=== PATIENT | female | born 1970 | race Two or more races ===

== ENCOUNTER 2023-06-16 23:44 | Emergency (ER) | payer OTHER ==
[~2023-06-16] VITALS: Ht 157.5 cm; Wt 87.0 kg
[2023-06-17 01:16] LABS: Basophils # (auto) 0.1 10 ^3/uL (0-0.2); Eosinophils # (auto) 0.5 10 ^3/uL (0-0.8); Lymphocytes # (auto) 1.6 10 ^3/uL (0.4-5.4); Neutrophils # (auto) 9.2 10 ^3/uL (1.6-8.6); Nucleated Red Blood Cells % 0.1 %; Red Cell Distribution Width 19.4 % (11.8-14.3)
[2023-06-17 01:17] LABS: Basophils % (auto) 0.9 % (0.0-2.0); Eosinophils % (auto) 3.9 % (0.0-7.0); Hematocrit 31.8 % (36.0-46.0); Hemoglobin 10.4 g/dL (12.2-16.2); Mean Corpuscular Hemoglobin 23.4 pg (28.0-32.0); Mean Corpuscular Hgb Conc. 32.8 g/dL (32.0-36.0); Mean Corpuscular Volume 71.5 fL (80.0-100.0); Monocytes # (auto) 0.9 10 ^3/uL (0-1.3); Monocytes % (auto) 7.2 % (0.0-12.0); Red Blood Cells 4.44 10^6/uL (4.0-5.20); White Blood Cell 12.3 10^3/uL (4.4-10.8)
[2023-06-17 01:33] LABS: Alanine Aminotransferase 34 U/L (7-40); Albumin 3.7 g/dL (3.2-4.8); Alkaline Phosphatase 111 U/L (46-116); Anion Gap 8 (5-15); Aspartate Aminotransferase 36 U/L (13-40); BUN/Creatinine Ratio 18.8 (10.0-20.0); Bilirubin, Total 0.3 mg/dL (0.2-1.0); Blood Urea Nitrogen 16 mg/dL (9-23); Calcium 8.5 mg/dL (8.7-10.4); Carbon Dioxide 26 mmol/L (20-30); Chloride 105 mmol/L (98-107); Glucose 244 mg/dL (74-106); Potassium 3.8 mmol/L (3.5-5.1); Sodium 139 mmol/L (136-145); Total Protein 6.7 g/dL (5.7-8.2)
[2023-06-17] MEDS ORDERED: MEDR5TAB28 PO (02:09)
[2023-06-17] MEDS ORDERED: CEPH500C PO (02:09)
[2023-06-17 02:50] VITALS: BP 148/77; PULSE 101; RESP 16; TEMP 98.6; O2SAT 97
[2023-06-20] MEDS ORDERED: FER325T PO (04:58)
== END 2023-06-17 02:58 | disposition home or self-care (01) ==
LOC: EDBD 23:44 → ER 23:44
DX: N93.9 Abnormal uterine and vaginal bleeding, unspecified (principal)
CPT/HCPCS: 36415; 76856; 80053; 84702; 85025

== ENCOUNTER 2023-07-04 15:14 | Emergency (ER) | payer OTHER ==
[~2023-07-04] VITALS: Ht 157.5 cm; Wt 144.3 kg
[~2023-07-04 15:14] MED LIST: CEPH500C PO; FER325T PO; MEDR5TAB28 PO
[2023-07-04 15:47] VITALS: BP 156/84; PULSE 120; RESP 16; TEMP 98.2; O2SAT 98
[2023-07-04] MEDS ORDERED: MEDR5TAB28 PO (15:57)
== END 2023-07-04 16:09 | disposition home or self-care (01) ==
LOC: ER 15:14
DX: N93.9 Abnormal uterine and vaginal bleeding, unspecified (principal); Z76.0 Encounter for issue of repeat prescription; Z79.899 Other long term (current) drug therapy

== ENCOUNTER 2025-01-07 19:19 | Inpatient (IN) | payer MEDICAID, OTHER ==
[~2025-01-07] VITALS: Ht 157.5 cm; Wt 127.5 kg
--- NOTE | 2025-01-07 19:43 | ED.PDOC ---
HPI Comments 54-year-old female came to ER for chest pains. Patient has history of hypertension, uterine cancer, status post hysterectomy, on chemotherapy every 3 weeks. Has been complaining of left-sided chest pain since yesterday, intermittent, nonradiating, associated with dizziness and palpitations. Upon arrival at the emergency room, heart rate of 140s, blood pressure 160/90 mm Hg, saturating 99% on room air Chief Complaint: Chest Pain Time Seen by MD: 19:42 Reviewed Notes: Nurses Notes Allergies: Coded Allergies: NO KNOWN ALLERGIES (Unverified , 06/17/23) Home Meds Active Scripts Medroxyprogesterone Acetate (PROVERA) 5 Mg Tab, 1 TAB PO DAILY, #30 TAB Prov:MALIK SANTANA PA 07/04/23 Ferrous Sulfate (FERROUS SULFATE) 325 Mg Tb, 1 TAB PO DAILY for 30 Days, #30 TAB 3 Refills Prov:SAIRA CHAMBERSA Q GROCERY WORKER 06/20/23 Cephalexin Monohydrate (Cephalexin) 500 Mg Cap, 1 CAP PO QID for 10 Days, #40 CAP Prov:SAIRA CHAMBERSA Q GROCERY WORKER 06/17/23 Medroxyprogesterone Acetate (PROVERA) 5 Mg Tab, 2 TAB PO DAILY for 5 Days, #10 TAB Prov:CHAMBERSNORALDA Q GROCERY WORKER 06/17/23 Information Source: Patient Mode of Arrival: Ambulatory Severity: Moderate Timing: Hours Duration: Intermittent Prehospital treatment: None Location: Chest (L) Radiation: No Radiation Quality: Aching Onset: At Rest Cardiac Risk Factors: HTN PE Risk Factors: Other (Chemotherapy) Associated Signs and Symptoms: Palpitations Past Medical History PAST MEDICAL HISTORY: Cancer, HTN, Denies Past Medical History (Other): Uterine cancer Surgical History: , Hysterectomy Surgical History (Other): Chemotherapy INFECTIOUS WASTE TECHNICIAN History: No Pertinent INFECTIOUS WASTE TECHNICIAN History Social History Smoker: Non-Smoker Alcohol: Denies ETOH Use Drugs: Denies Drug Use Lives In: Home Constitutional: denies: chills, diaphoresis, fatigue, fever, malaise, sweats, weakness, others EENTM: denies: blurred vision, double vision, ear bleeding, ear discharge, ear drainage, ear pain, ear ringing, eye pain, eye redness, hearing loss, mouth pain, mouth swelling, nasal discharge, nose bleeding, nose congestion, nose pain, photophobia, tearing, throat pain, throat swelling, voice changes, others Respiratory: denies: cough, hemoptysis, orthopnea, SOB at rest, shortness of breath, SOB with excertion, stridor, wheezing, others Cardiovascular: reports: chest pain, dizzy spells, edema, palpitations; denies: diaphoresis, Dyspnea on exertion, irregular heart beat, left arm pain, lightheadedness, PND, syncope, others Gastrointestinal: denies: abdomen distended, abdominal pain, blood streaked bowels, constipated, diarrhea, dysphagia, difficulty swallowing, hematemesis, melena, nausea, poor appetite, poor fluid intake, rectal bleeding, rectal pain, vomiting, others Genitourinary: denies: abnormal vagina bleeding, burning, dyspareunia, dysuria, flank pain, frequency, hematuria, incontinence, pain, , vagina discharge, urgency, others Neurological: denies: dizziness, fainting, headache, left sided numbness, left sided weakness, numbness, paresthesia, pre-existing deficit, right sided numbness, right sided weakness, seizure, speech problems, tingling, tremors, weakness, others Musculoskeletal: denies: back pain, gout, joint pain, joint swelling, muscle pain, muscle stiffness, neck pain, others Integumetry: denies: bruises, change in color, change in hair/nails, dryness, laceration, lesions, lumps, rash, wounds, others Allergic/Immunocompromised: denies: Difficulty Healing, Frequent Infections, Hives, Itching, others Hematologic/Lymphatic: denies: anemia, blood clots, easy bleeding, easy bruising, swollen glands, others Endocrine: denies: excessive hunger, excessive sweating, excessive thirst, excessive urination, flushing, intolerance to cold, intolerance to heat, unexplained weight gain, unexplained weight loss, others Psychiatric: denies: anxiety, bipolar disorder, depression, hopeless, panic disorder, schizophrenia, sleepless, suicidal, others Physical Exam General Appearance: No Apparent Distress, Normal HEENT: Normal ENT Inspection, Pharynx Normal, TMs Normal Neck: Full Range of Motion, Non-Tender, Normal, Normal Inspection Respiratory: Chest Non-Tender, Lungs Clear, No Accessory Muscle Use, No Respiratory Distress, Normal Breath Sounds Cardiovascular: No Edema, No JVD, No Murmur, No Gallop, Normal Peripheral Pulses, Tachycardia Breast Exam: Deferred Gastrointestinal: No Organomegaly, Non Tender, No Pulsatile Mass, Normal Bowel Sounds, Soft Genitalia: Deferred Pelvic: Deferred Rectal: Deferred Extremities: No calf tenderness, Normal capillary refill, Normal inspection, Normal range of motion, Non-tender, No pedal edema Musculoskeletal : Apperance: Normal Neurologic: Alert, machine paint mixer II-XII nml as Tested, No Motor Deficits, Normal Affect, Normal Mood, No Sensory Deficits Cerebellar Function: Normal Reflexes: Normal Skin: Dry, Normal Color, Warm Lymphatic: No Adenopathy EKG EKG : Pulse Rate (adult): 140 Cardiac Rhythm: ST Hypertrophy: LAE, LVH Was a procedure done? Was a procedure done?: No CP Differential Dx Differential Diagnosis: Angina, Anxiety / Panic Attack, Heart Failure, Hyperventilation, Pulmonary Embolus, Sinus Tachycardia Differential Diagnosis: Angina, Chest Wall Pain, Costochondritis, Esophageal reflux/spasm, Gastritis, Myocardial Infarction X-Ray, Labs, Meds, VS Vital Signs Date Time Temp Pulse Resp B/P (MAP) Pulse Ox O2 Delivery O2 Flow Rate FiO2 01/07/25 22:45 105 134/78 01/07/25 22:00 109 19 134/78 (96) 99 01/07/25 20:10 117 10 99 Room Air* 0 21 01/07/25 20:10 98.6 117 20 127/70 (89) 99 98.6 01/07/25 20:00 119 01/07/25 19:43 140 01/07/25 19:22 98.2 145 18 160/90 (113) 99 98.2 Lab Test 01/07/25 23:11 01/07/25 20:44 01/07/25 19:40 Range/Units Troponin I High Sensitivity Pending 80 *H 60 *H </=34 ng/L White Blood Count 4.4 4.4-10.8 10^3/uL Red Blood Count 4.71 4.0-5.20 10^6/uL Hemoglobin 12.1 L 12.2-16.2 g/dL Hematocrit 35.7 L 36.0-46.0 % Mean Corpuscular Volume 75.7 L 80.0-100.0 fL Mean Corpuscular Hemoglobin 25.7 L 28.0-32.0 pg Mean Corpuscular Hemoglobin Concent 34.0 32.0-36.0 g/dL Red Cell Distribution Width 21.4 H 11.8-14.3 % Platelet Count 119 L 140-450 10^3/uL Mean Platelet Volume 8.1 6.9-10.8 fL Neutrophils (%) (Auto) 62.8 37.0-80.0 % Lymphocytes (%) (Auto) 25.0 10.0-50.0 % Monocytes (%) (Auto) 9.4 0.0-12.0 % Eosinophils (%) (Auto) 2.1 0.0-7.0 % Basophils (%) (Auto) 0.7 0.0-2.0 % Neutrophils # (Auto) 2.8 1.6-8.6 10 ^3/uL Lymphocytes # (Auto) 1.1 0.4-5.4 10 ^3/uL Monocytes # (Auto) 0.4 0-1.3 10 ^3/uL Eosinophils # (Auto) 0.1 0-0.8 10 ^3/uL Basophils # (Auto) 0 0-0.2 10 ^3/uL Nucleated Red Blood Cells 0.3 % Sodium Level 143 136-145 mmol/L Potassium Level 4.1 3.5-5.1 mmol/L Chloride Level 110 H 98-107 mmol/L Carbon Dioxide Level 23 20-31 mmol/L Anion Gap 10 5-15 Blood Urea Nitrogen 14 9-23 mg/dL Creatinine 0.71 0.550-1.02 mg/dL Glomerular Filtration Rate Calc 100 >90 mL/min BUN/Creatinine Ratio 19.7 10.0-20.0 Serum Glucose 140 H 74-106 mg/dL Calcium Level 9.8 8.7-10.4 mg/dL Current Medications Medications (Trade) Dose Ordered Sig/Raghu Route Start Time Stop Time Status Last Admin Metoprolol Succinate (Toprol Xl) 25 mg ONCE ONCE PO 01/07/25 22:45 01/07/25 22:46 DC 01/07/25 22:45 CHEST RADIOGRAPH Indication: chest pain Technique: Single frontal view of the chest was obtained COMPARISON: None FINDINGS: Lines and Tubes: Right IJ port-a-cath noted with its tip projecting over SVC. Lungs: Clear Pleura: No effusion. No pneumothorax. Cardiomediastinal contours: Unremarkable IMPRESSION: No abnormality demonstrated. Time of 1ST Reevaluation: 19:39 Reevaluation 1ST: Unchanged Patient Education/Counseling: Diagnosis, Treatment Family Education/Counseling: No Family Present Departure 1 Departure Time of Disposition: 23:33 (Patient presented with chest pain that was concerning for possible STEMI, ACS, PE, Pneumonia, Muscle Strain, COPD, Dissect ion. Data: 1. I ordered and reviewed the result of at least 3 labs including a CBC, BMP, and Troponin. 2. I independently interpreted the following tests: EKG which shows sinus tachycardia and Chest X-ray which shows benign chest.Risk:This patient has a high risk of morbidity due to further diagnostic testing or treatment and may suffer from an acute cardiac or respiratory disorder. Workup reveals concern for ACS and patient should be admitted for further workup and possible expert consultation. ) Impression: Primary Impression: Acute chest pain Additional Impressions: Shortness of breath Uterine cancer Qualified Codes: C55 - Malignant neoplasm of uterus, part unspecified Disposition: ADMITTED INPATIENT Admit to: Tele Condition: Guarded Critical Care Note Critical Care Time?: Yes (35 min-critical care time only) Critical care comment: Chest pains Authorized and Performed by: Kelly Loja MD Total critical care time: Approximately 42 minutes Due to a high probability of clinically significant, life threatening deterioration, the patient required my highest level of preparedness to intervene emergently and I personally spent this critical care time directly and personally managing the patient. This critical care time included obtaining a history; examining the patient; pulse oximetry; ordering and review of studies; arranging urgent treatment with development of a management plan; evaluation of patient's response to treatment; frequent reassessment; and, discussions with other providers. This critical care time was performed to assess and manage the high probability of imminent, life-threatening deterioration that could result in multi-organ failure. It was exclusive of separately billable procedures and treating other patients and teaching time. Please see my other sections and the rest of the note for further information on patient assessment and treatment. Stability Stability form required: No Heart Score Heart Score: Heart Score Response (Comments) Value History Moderate Suspicious 1 EKG Repolarization Disturb 1 Age 45-64 1 Risk Factors >3 or Hx ASHD 2 Troponin 1-2 x's Normal limit 1 Total 6 I personally scribed for KELLY LOJA MD ([email or web address]) on 01/07/25 at 19:43. Electronically submitted by Josiah Castro ([facility]). I personally scribed for KELLY LOJA MD ([facility]) on 01/07/25 at 21:11. Ml ctronically submitted by Josiah Castro ([facility] I personally scribed for KELLY LOJA MD ([facility]) on 01/07/25 at 21:17. Electronically submitted by Josiah Castro ([facility] KELLY LOJA MD January 07, 2025 19:43
[2025-01-07 19:57] LABS: Basophils # (auto) 0 10 ^3/uL (0-0.2); Basophils % (auto) 0.7 % (0.0-2.0); Eosinophils # (auto) 0.1 10 ^3/uL (0-0.8); Eosinophils % (auto) 2.1 % (0.0-7.0); Hematocrit 35.7 % (36.0-46.0); Hemoglobin 12.1 g/dL (12.2-16.2); Lymphocytes # (auto) 1.1 10 ^3/uL (0.4-5.4); Mean Corpuscular Hemoglobin 25.7 pg (28.0-32.0); Mean Corpuscular Volume 75.7 fL (80.0-100.0); Monocytes # (auto) 0.4 10 ^3/uL (0-1.3); Monocytes % (auto) 9.4 % (0.0-12.0); Neutrophils # (auto) 2.8 10 ^3/uL (1.6-8.6); Neutrophils % (auto) 62.8 % (37.0-80.0); Nucleated Red Blood Cells % 0.3 %; Platelet Count (auto) 119 10^3/uL (140-450); Red Blood Cells 4.71 10^6/uL (4.0-5.20); White Blood Cell 4.4 10^3/uL (4.4-10.8)
[2025-01-07 19:58] LABS: Red Cell Distribution Width 21.4 % (11.8-14.3)
[2025-01-07 20:07] LABS: Potassium 4.1 mmol/L (3.5-5.1); Sodium 143 mmol/L (136-145)
[2025-01-07 20:08] LABS: Anion Gap 10 (5-15); Calcium 9.8 mg/dL (8.7-10.4); Carbon Dioxide 23 mmol/L (20-31)
[2025-01-07 20:10] VITALS: PULSE 117; RESP 10; O2SAT 99
[2025-01-07 20:13] LABS: BUN/Creatinine Ratio 19.7 (10.0-20.0); Blood Urea Nitrogen 14 mg/dL (9-23)
[2025-01-07 20:38] LABS: Chloride 110 mmol/L (98-107); Glucose 140 mg/dL (74-106)
--- NOTE | 2025-01-07 20:52 | DVH ---
CHEST RADIOGRAPH Indication: chest pain Technique: Single frontal view of the chest was obtained COMPARISON: None FINDINGS: Lines and Tubes: Right IJ port-a-cath noted with its tip projecting over SVC. Lungs: Clear Pleura: No effusion. No pneumothorax. Cardiomediastinal contours: Unremarkable IMPRESSION: No abnormality demonstrated.
[2025-01-07] MEDS: IOHEXOL 350 MG/ML 100ML IJ ONE (21:36)
[2025-01-07] MEDS: METOPROLOL SUCCINATE XL 50 MG TAB PO ONE (22:45)
--- NOTE | 2025-01-07 22:45 | DVH ---
Procedure: CT CT ANGIO CHEST CONTRAST Reason for study/Clinical History: chest pain, sob, malignancy Comparison Study: None Exam Date: 01/07/2025 09:56 PM Radiation Dose Information: CT Dose: CTDI volume is 24.95 mGy. Dose-length product is 2060.71 mGy*cm Contrast: Type of contrast: Omni 350 Contrast inject: 100 mL Contrast wasted:0 TECHNIQUE: After the uneventful administration of intravenous contrast intravenously, CT imaging was performed through the chest. Coronal and sagittal reformations were performed by the technologist. FINDINGS: Lower Neck: Visualized portions of the thyroid gland are unremarkable. Aorta and Vasculature: Normal caliber of thoracic aorta. Lymph Nodes: No enlarged intrathoracic lymph nodes. Mediastinum: Heart size is normal. There is no pericardial effusion. The esophagus is unremarkable. Lungs: No focal consolidation, pleural effusion or significant pneumothorax. No suspicious pulmonary nodule or mass. Musculoskeletal: No acute osseous abnormality. Upper abdomen: Limited portions of the upper abdomen are unremarkable. IMPRESSION: 1. No evidence of acute intrathoracic abnormality identified. 2. All CT scans at this medical facility are performed using dose modulation techniques as appropriate to a performed exam including the following: Automated exposure control was utilized; adjustment of t he MA and/or KV according to patient size; and use of iterative reconstruction technique.
[2025-01-08] VITALS (9 sets, daily range): BP systolic 104–144; BP diastolic 50–84; PULSE 83–122; RESP 17–20; TEMP 97.5–98.4; O2SAT 97–100
[2025-01-08] MEDS ORDERED: hydrALAZINE HCL 20 MG/ML VL IV PRN (01:00)
[2025-01-08] MEDS ORDERED: HYDROcodone-ACET 5/325MG TAB PO PRN (01:00)
[2025-01-08] MEDS ORDERED: ONDANSETRON HCL 4 MG/2 ML VIAL IV PRN (01:00)
[2025-01-08] MEDS ORDERED: DOCUSATE SOD 100 MG CAP PO PRN (01:00)
[2025-01-08] MEDS ORDERED: ACETAMINOPHEN 325 MG TAB PO PRN (01:00)
[2025-01-08] MEDS: ASPirin 81 mg TAB PO ONE (01:11)
--- NOTE | 2025-01-08 01:49 | DVHHP2 ---
History of Present Illness Reason for Visit: Acute coronary syndrome History of Present Illness The patient is a 54-year-old female with past medical history of uterine cancer and hypertension who presented to [facility] ED with complaint of chest pain. Patient is currently on chemotherapy every 3 weeks, complaining of left-sided chest pain, intermittent, nonradiating, associated with dizziness, palpitations heart rate in the 140s, getting worse that prompted this visit. Patient was seen and evaluated in the ED, laboratory data shows WBC 4.4, platelets 119, hemoglobin 12.1, hematocrit 35.7, glucose 140, sodium 143, potassium 4.1, BUN 14, creatinine 0.71, troponin 116, blood pressure 160/90, h eart rate 145 trending down to 104, temperature 98.2 F, O2 saturation 99% on oxygen. CT angiography showed no evidence of acute intrathoracic abnormality. Please see medication orders section in the computer. On my assessment, patient denies chest pain at this moment, no headache, no dizziness, no diaphoresis, currently on oxygen, no nausea, no vomiting, no fever, no chills. Patient was admitted for further evaluation and medical management. Past Medical History HTN, Uterine cancer Past Surgical History , Hysterectomy, Chemotherapy Family History Reviewed, noncontributory to the management of this case. Past Social History The patient lives at home, denies smoking, alcohol or illicit drugs abuse. Review of Systems Constitutional: No: Fever, Chills, Sweats, Weakness, Malaise, Other Eyes: No: Pain, Vision change, Conjunctivae inflammation, Eyelid inflammation, Other, Redness ENT: No: Ear pain, Ear discharge, Nose pain, Nose discharge, Nose congestion, Mouth pain, Mouth swelling, Throat pain, Throat swelling, Other Respiratory: No: Cough, Dry, Shortness of breath, SOB with excertion, Wheezing, Hemoptysis, Pleuritic Pain, Sputum, Wheezing, Other Cardiovascular: Chest Pain, Palpitations, Edema, Other (Dizzy spells); No: Orthopnea, Paroxysmal Noc. Dyspnea, Lt Headedness Gastrointestinal: No: Nausea, Vomiting, Abdominal Pain, Diarrhea, Constipation, Melena, Hematochezia, Other Genitourinary: No Dysuria, No Frequency, No Incontinence, No Hematuria, No Retention, No Other Musculoskeletal: No: other, neck pain, shoulder pain, arm pain, back pain, hand pain, leg pain, foot pain Skin: No: Rash, Lesions, Jaundice, Bruising, Other Neurological: No: Weakness, Numbness, Incoordination, Change in speech, Confusion, Seizures, Other Allergies: Coded Allergies: NO KNOWN ALLERGIES (Unverified , 06/17/23) Medications Current Medications Medications Dose Ordered Sig/Raghu Route Start Time Stop Time Status Last Admin Dose Admin Aspirin 81 mg DAILY PO 01/08/25 10:00 Hydralazine HCl 10 mg Q6HP PRN IV 01/08/25 01:00 Metoprolol Tartrate 25 mg BID PO 01/08/25 10:00 Sodium Chloride 10 ml Q8HR IV 01/08/25 06:00 Acetaminophen/ Hydrocodone Bitart 1 tab Q4HP PRN PO 01/08/25 01:00 Ondansetron HCl 4 mg Q4HP PRN IV 01/08/25 01:00 Docusate Sodium 100 mg BIDPRN PRN PO 01/08/25 01:00 Acetaminophen 650 mg Q6HP PRN PO 01/08/25 01:00 Exam Vital Signs Vital Signs Date Time Temp Pulse Resp B/P (MAP) Pulse Ox O2 Delivery O2 Flow Rate FiO2 01/08/25 00:00 121 25 131/77 (95) 98 01/07/25 20:10 Room Air* 0 21 01/07/25 20:10 98.6 98.6 General Appearance: Alert, Oriented X3, Cooperative, No acute distress HEENT: Atraumatic, PERRLA, EOMI, Mucous membr. moist/pink Respiratory: Normal air movement Cardiovascular: Regular rate, Normal S1, Normal S2, No murmurs Abdominal: Normal bowel sounds, Soft, No tenderness, No hepatospenomegaly, No masses Extremities: No clubbing, No cyanosis, No edema, Normal pulses, No tenderness/swelling Skin: No rashes, No breakdown, No significant lesion Neuro: Normal gait, Normal speech, Strength at 5/5 X4 ext, Normal tone, Sensation intact, Cranial nerves 3-12 NL, Reflexes 2+ Psych/Mental Status: Mental status NL, Mood NL Labs/Xrays Labs Test 01/07/25 23:11 01/07/25 19:40 Range/Units Troponin I High Sensitivity 116 *H </=34 ng/L White Blood Count 4.4 4.4-10.8 10^3/uL Red Blood Count 4.71 4.0-5.20 10^6/uL Hemoglobin 12.1 L 12.2-16.2 g/dL Hematocrit 35.7 L 36.0-46.0 % Mean Corpuscular Volume 75.7 L 80.0-100.0 fL Mean Corpuscular Hemoglobin 25.7 L 28.0-32.0 pg Mean Corpuscular Hemoglobin Concent 34.0 32.0-36.0 g/dL Red Cell Distribution Width 21.4 H 11.8-14.3 % Platelet Count 119 L 140-450 10^3/uL Mean Platelet Volume 8.1 6.9-10.8 fL Neutrophils (%) (Auto) 62.8 37.0-80.0 % Lymphocytes (%) (Auto) 25.0 10.0-50.0 % Monocytes (%) (Auto) 9.4 0.0-12.0 % Eosinophils (%) (Auto) 2.1 0.0-7.0 % Basophils (%) (Auto) 0.7 0.0-2.0 % Neutrophils # (Auto) 2.8 1.6-8.6 10 ^3/uL Lymphocytes # (Auto) 1.1 0.4-5.4 10 ^3/uL Monocytes # (Auto) 0.4 0-1.3 10 ^3/uL Eosinophils # (Auto) 0.1 0-0.8 10 ^3/uL Basophils # (Auto) 0 0-0.2 10 ^3/uL Nucleated Red Blood Cells 0.3 % Sodium Level 143 136-145 mmol/L Potassium Level 4.1 3.5-5.1 mmol/L Chloride Level 110 H 98-107 mmol/L Carbon Dioxide Level 23 20-31 mmol/L Anion Gap 10 5-15 Blood Urea Nitrogen 14 9-23 mg/dL Creatinine 0.71 0.550-1.02 mg/dL Glomerular Filtration Rate Calc 100 >90 mL/min BUN/Creatinine Ratio 19.7 10.0-20.0 Serum Glucose 140 H 74-106 mg/dL Calcium Level 9.8 8.7-10.4 mg/dL PATIENT: MELISSA ONEILL ACCT: [id number] UNIT: [id number] : 1970 LOC: ER ROOM / BED: / AGE / SEX: 54 / F ADM STATUS: REG ER SERVICE 17 ORDERING PHYSICIAN: KELLY LOJA MD PROCEDURE(s): CTACH - CT ANGIO CHEST CONTRAST REASON: chest pain, sob, malignancy ORDER NUMBER(s): [id number], ACCESSION NUMBER(s): [id number] Procedure: CT CT ANGIO CHEST CONTRAST Reason for study/Clinical History: chest pain, sob, malignancy Comparison Study: None Exam Date: 01/07/2025 09:56 PM Radiation Dose Information: CT Dose: CTDI volume is 24.95 mGy. Dose-length product is 2060.71 mGy*cm Contrast: Type of contrast: Omni 350 Contrast inject: 100 mL Contrast wasted:0 TECHNIQUE: After the uneventful administration of intravenous contrast intravenously, CT imaging was performed through the chest. Coronal and sagittal reformations were performed by the technologist. FINDINGS: Lower Neck: Visualized portions of the thyroid gland are unremarkable. Aorta and Vasculature: Normal caliber of thoracic aorta. Lymph Nodes: No enlarged intrathoracic lymph nodes. Mediastinum: Heart size is normal. There is no pericardial effusion. The esophagus is unremarkable. Lungs: No focal consolidation, pleural effusion or significant pneumothorax. No suspicious pulmonary nodule or mass. Musculoskeletal: No acute osseous abnormality. Upper abdomen: Limited portions of the upper abdomen are unremarkable. IMPRESSION: 1. No evidence of acute intrathoracic abnormality identified. ORDERING PHYSICIAN: KELLY LOJA MD PROCEDURE(s): CXRP - CHEST PORTABLE REASON: chest pain ORDER NUMBER(s): [id number], ACCESSION NUMBER(s): [id number] CHEST RADIOGRAPH Indication: chest pain Technique: Single frontal view of the chest was obtained COMPARISON: None FINDINGS: Lines and Tubes: Right IJ port-a-cath noted with its tip projecting over SVC. Lungs: Clear Pleura: No effusion. No pneumothorax. Cardiomediastinal contours: Unremarkable IMPRESSION: No abnormality demonstrated. Assessment/Plan Assessment/Plan Acute chest pain Shortness of breath Uterine cancer Malignant neoplasm of uterus, part unspecified Plan 1. Admit to telemetry unit 2. Breathing treatment 3. Pain control management 4. Management of fluids and electrolytes 5. Consultation for hospitalist 6. Diagnostic tests CT angiography 7. DVT prophylaxis-on aspirin 8. Repeat labs CBC, CMP in a.m. 9. Continue with current medical management 10. Treatment plan discussed with patient and RN. Patient verbalized understanding. Plan discussed with: Patient, Other (RN) My Orders Orders - HOWIE GALLARDO DNP Procedure Category Date Status Time Complete Blood Count LAB 01/08/25 Logged 04:00 Comprehensive LAB 01/08/25 Logged Metabolic Panel 04:00 Aspirin Tablet PHA 01/08/25 In Process 10:00 * Cardiology Consult CONS 01/08/25 Transmitted 00:51 Hydralazine Injection PHA 01/08/25 In Process (Apresoline Inject 01:00 Metoprolol Tartrate PHA 01/08/25 In Process Tablet (Lopressor Ta 10:00 Allergies LELE 01/08/25 In Process 00:51 Code Status CODE 01/08/25 Transmitted 00:51 Sodium Chloride Lock PHA 01/08/25 In Process (Saline Lock Ns) 06:00 Oxygen Per Hour RT 01/08/25 Transmitted 00:51 Hydrocodone-Acet PHA 01/08/25 In Process 5/325mg Tab ([place] 01:00 Ondansetron Hcl PHA 01/08/25 In Process (Zofran) 01:00 Docusate Sodium PHA 01/08/25 In Process Capsule (Colace 01:00 Complete Blood Count LAB 01/09/25 Verified 04:00 Comprehensive LAB 01/09/25 Verified Metabolic Panel 04:00 Cardiac DIET 01/08/25 Transmitted Diet-2gna,Lofat,Lochol Breakfast Condition: Serious LELE 01/08/25 In Process 00:51 Acetaminophen Tablet PHA 01/08/25 In Process (Tylenol Tablet) 01:00 Bedrest With Bathroom LELE 01/08/25 In Process Privileg 00:51 Maintain Bed Rest LELE 01/08/25 In Process 00:51 Sequential LELE 01/08/25 In Process Compression Device Admit ADMIT 01/08/25 Verified 01:48 Nitroglycerin PHA 01/08/25 Verified Sublingual (Ntrostat 02:00 Morphine Sulfate PHA 01/08/25 Verified Injection 02:00 Stat Ekg For Chest LELE 01/08/25 Verified Pain 01:48 Notify Of Changes LELE 01/08/25 Verified From Base 01:48 Dock Worker For LLEE 01/08/25 Verified 24 Hours 01:48 Emergency Dysrhythmia LELE 01/08/25 Verified Protocol 01:48 Rhythm Strips Once LELE 01/08/25 Verified Every Shift 01:48 Oxygen By Nasal RT 01/08/25 Verified Cannula 01:48 Problem List: (1) Acute chest pain (2) Shortness of breath (3) Uterine cancer (4) Malignant neoplasm of uterus, part unspecified Date of Service: January 08, 2025 Billing Provider: HOWIE GALLARDO DNP Common Visit Codes: [id number] INP/OBS CARE (HIGH) HOWIE GALLARDO DNP January 08, 2025 01:49
[2025-01-08] MEDS ORDERED: NITROGLYCERIN 0.4 MG SL TAB SL PRN (02:00)
[2025-01-08] MEDS ORDERED: MORPHINE SULFATE INJ 2 MG/ml SYRG IV PRN (02:00)
[2025-01-08] MEDS ORDERED: MET25T PO (04:45)
[2025-01-08] MEDS ORDERED: LOS25T PO (04:45)
--- NOTE | 2025-01-08 05:47 | ECG ---
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
[2025-01-08] MEDS: SODIUM CHLOR 0.9% PF (SALINE LOCK) 10ML VIAL/SYR IV SCH (07:30)
[2025-01-08] MEDS: ASPirin 81 mg TAB PO SCH (09:01)
[2025-01-08] MEDS: METOPROLOL TARTRATE 25 MG TAB PO SCH (09:02)
[2025-01-08 11:11] LABS: Basophils # (auto) 0 10 ^3/uL (0-0.2); Basophils % (auto) 0.6 % (0.0-2.0); Eosinophils # (auto) 0.1 10 ^3/uL (0-0.8); Eosinophils % (auto) 2.3 % (0.0-7.0); Hematocrit 34.8 % (36.0-46.0); Hemoglobin 11.6 g/dL (12.2-16.2); Lymphocytes # (auto) 0.8 10 ^3/uL (0.4-5.4); Lymphocytes % (auto) 19.6 % (10.0-50.0); Mean Corpuscular Hemoglobin 25.7 pg (28.0-32.0); Mean Corpuscular Hgb Conc. 33.4 g/dL (32.0-36.0); Mean Corpuscular Volume 77.1 fL (80.0-100.0); Monocytes # (auto) 0.4 10 ^3/uL (0-1.3); Monocytes % (auto) 9.7 % (0.0-12.0); Neutrophils # (auto) 2.7 10 ^3/uL (1.6-8.6); Neutrophils % (auto) 67.8 % (37.0-80.0); Nucleated Red Blood Cells % 0.4 %; Platelet Count (auto) 121 10^3/uL (140-450); Red Blood Cells 4.51 10^6/uL (4.0-5.20); Red Cell Distribution Width 21.5 % (11.8-14.3); White Blood Cell 4.1 10^3/uL (4.4-10.8)
[2025-01-08 11:21] LABS: INR 0.97 (0.9-1.15); Prothrombin Time 10.3 sec (9.3-11.8)
[2025-01-08 11:24] LABS: Albumin 4.2 g/dL (3.2-4.8); Anion Gap 6 (5-15); Aspartate Aminotransferase 27 U/L (13-40); BUN/Creatinine Ratio 17.2 (10.0-20.0); Bilirubin, Total 0.4 mg/dL (0.2-1.0); Blood Urea Nitrogen 11 mg/dL (9-23); Calcium 9.9 mg/dL (8.7-10.4); Carbon Dioxide 26 mmol/L (20-31); HDL Cholesterol 43 mg/dL (40-59); Potassium 3.9 mmol/L (3.5-5.1); Sodium 142 mmol/L (136-145); Total Protein 7.1 g/dL (5.7-8.2); Triglycerides 114 mg/dL (< 150)
[2025-01-08 11:31] LABS: Alanine Aminotransferase 43 U/L (7-40); Alkaline Phosphatase 130 U/L (46-116); Chloride 110 mmol/L (98-107); Cholesterol 218 mg/dL (< 200); Glucose 128 mg/dL (74-106); LDL Cholesterol 167 mg/dL (< 100)
--- NOTE | 2025-01-08 11:52 | DVHCONRES ---
Date Seen: January 08, 2025 Resident Creating Document: SANTA GUDINO RESIDENT History of Present Illness 54 year old female with past medical history of uterine cancer currently on chemotherapy, hypertension presented with complaints of chest pain. Mentioned that she started having chest pain yesterday at 2000 hours which was sharp, substernal, not radiating, not exacerbated by activity, not improve with activity and not improved on rest. Patient had associated palpitation and "elevated heart rate" which also last for few seconds. Patient has been receiving Trabectedin and Doxorubicin for uterine cancer. Was evaluated six months ago for echo which was within normal limits. Was evaluated June 2024 for high heart rate from [place] and she was evaluated with holter monitor which was within normal limits Cardiology was consulted for chest pain. currently has no active complaints. Medication History Metoprolol Losartan Family History Liver cancer in father 2016 Mother had breast cancer in 2017 Family History: FH: cancer G8 MOTHER, G8 FATHER, Allergies: Coded Allergies: NO KNOWN ALLERGIES (Unverified , 06/17/23) Home Meds Reported Medications Losartan Potassium (Losartan Potassium) 25 Mg Tab, 1 TAB PO DAILY 01/08/25 Metoprolol Tartrate (Lopressor) 25 Mg Tb, 1 TAB PO BID 01/08/25 Current Medications Current Medications Medications (Trade) Dose Ordered Sig/Raghu Route PRN Reason Start Time Stop Time Status Last Admin Aspirin 81 mg DAILY PO 01/08/25 10:00 01/08/25 09:01 Hydralazine HCl (Apresoline Injection) 10 mg Q6HP PRN IV SBP>150 01/08/25 01:00 Metoprolol Tartrate (Lopressor Tablet) 25 mg BID PO 01/08/25 10:00 01/08/25 09:02 Sodium Chloride (Saline Lock Ns) 10 ml Q8HR IV 01/08/25 06:00 Acetaminophen/ Hydrocodone Bitart ([place] 5/325MG Tab) 1 tab Q4HP PRN PO MODERATE PAIN (4-6 PAIN SCALE) 01/08/25 01:00 Ondansetron HCl (Zofran) 4 mg Q4HP PRN IV NAUSEA / VOMITING 01/08/25 01:00 Docusate Sodium (Colace Capsule) 100 mg BIDPRN PRN PO FOR CONSTIPATION 01/08/25 01:00 Acetaminophen (Tylenol Tablet) 650 mg Q6HP PRN PO PAIN SCALE 1-3 OR TEMP>100.4 01/08/25 01:00 Nitroglycerin (Ntrostat Sublingual) 0.4 mg Q5MINP PRN SL FOR CHEST PAIN 01/08/25 02:00 Morphine Sulfate 2 mg Q30M PRN IV FOR CHEST PAIN 01/08/25 02:00 Review of Systems As described in the HPI Vital Signs Vital Signs Date Time Temp Pulse Resp B/P (MAP) Pulse Ox O2 Delivery O2 Flow Rate FiO2 01/08/25 10:02 84 119/74 01/08/25 09:00 98.1 17 100 98.1 01/08/25 08:05 Room Air* 0 21 Physical Exam Examination General Appearance: Alert, Oriented X3, Cooperative, No acute distress HEENT: EOMI Respiratory: Clear to auscultation, Normal air movement Cardiovascular: Regular rate, Normal S1, Normal S2 Abdominal: Normal bowel sounds Extremities: No cyanosis, No edema, Normal pulses, No tenderness/swelling Skin: No rashes, No breakdown Neuro: Normal gait, Normal speech, Strength at 5/5 X4 ext, Normal tone, Sensation intact, Cranial nerves 3-12 NL, Reflexes 2+ Psych/Mental Status: Mental status NL, Mood NL Labs/Diagnostic Data Labs Test 01/08/25 10:21 Range/Units White Blood Count 4.1 L 4.4-10.8 10^3/uL Red Blood Count 4.51 4.0-5.20 10^6/uL Hemoglobin 11.6 L 12.2-16.2 g/dL Hematocrit 34.8 L 36.0-46.0 % Mean Corpuscular Volume 77.1 L 80.0-100.0 fL Mean Corpuscular Hemoglobin 25.7 L 28.0-32.0 pg Mean Corpuscular Hemoglobin Concent 33.4 32.0-36.0 g/dL Red Cell Distribution Width 21.5 H 11.8-14.3 % Platelet Count 121 L 140-450 10^3/uL Mean Platelet Volume 6.4 L 6.9-10.8 fL Neutrophils (%) (Auto) 67.8 37.0-80.0 % Lymphocytes (%) (Auto) 19.6 10.0-50.0 % Monocytes (%) (Auto) 9.7 0.0-12.0 % Eosinophils (%) (Auto) 2.3 0.0-7.0 % Basophils (%) (Auto) 0.6 0.0-2.0 % Neutrophils # (Auto) 2.7 1.6-8.6 10 ^3/uL Lymphocytes # (Auto) 0.8 0.4-5.4 10 ^3/uL Monocytes # (Auto) 0.4 0-1.3 10 ^3/uL Eosinophils # (Auto) 0.1 0-0.8 10 ^3/uL Basophils # (Auto) 0 0-0.2 10 ^3/uL Nucleated Red Blood Cells 0.4 % Prothrombin Time 10.3 9.3-11.8 sec Prothrombin Time INR 0.97 0.9-1.15 Activated Partial Thromboplast Time 26.0 24.5-34.5 SEC Sodium Level 142 136-145 mmol/L Potassium Level 3.9 3.5-5.1 mmol/L Chloride Level 110 H 98-107 mmol/L Carbon Dioxide Level 26 20-31 mmol/L Anion Gap 6 5-15 Blood Urea Nitrogen 11 9-23 mg/dL Creatinine 0.64 0.550-1.02 mg/dL Glomerular Filtration Rate Calc 104 >90 mL/min BUN/Creatinine Ratio 17.2 10.0-20.0 Serum Glucose 128 H 74-106 mg/dL Hemoglobin A1c 5.3 <5.7 % A1C Calcium Level 9.9 8.7-10.4 mg/dL Total Bilirubin 0.4 0.2-1.0 mg/dL Aspartate Amino Transferase (AST) 27 13-40 U/L Alanine Aminotransferase (ALT) 43 H 7-40 U/L Alkaline Phosphatase 130 H 46-116 U/L Troponin I High Sensitivity 54 *H </=34 ng/L Total Protein 7.1 5.7-8.2 g/dL Albumin 4.2 3.2-4.8 g/dL Triglycerides Level 114 < 150 mg/dL Cholesterol Level 218 H < 200 mg/dL LDL Cholesterol 167 H < 100 mg/dL HDL Cholesterol 43 40-59 mg/dL Plan/Recommendation Assessment/plan #Chest pain, ruled out ACS -ekg no st changes -elevated trops , not significantly uptrending, 60, 80, 116, 54 #Elevated trops ,likely NSTEMI type II, likely due to sinus tach --elevated trops , not significantly uptrending, 60, 80, 116, 54 #Sinus tach, currently resolved #Uterine cancer on chemotherapy #hypertension Plan Monitor Telemetry Repeat Trops ekg Echo, awaiting results Consider increasing dose of metoprolol to 50mg BID on discharge 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
--- NOTE | 2025-01-08 20:30 | ECG ---
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
[2025-01-09] VITALS (10 sets, daily range): BP systolic 114–157; BP diastolic 74–94; PULSE 80–142; RESP 17–20; TEMP 98–98.3; O2SAT 97–100
[2025-01-09 06:42] LABS: Basophils # (auto) 0 10 ^3/uL (0-0.2); Basophils % (auto) 0.6 % (0.0-2.0); Eosinophils # (auto) 0.1 10 ^3/uL (0-0.8); Hemoglobin 11.8 g/dL (12.2-16.2); Lymphocytes # (auto) 0.9 10 ^3/uL (0.4-5.4); Monocytes # (auto) 0.4 10 ^3/uL (0-1.3); Monocytes % (auto) 8.8 % (0.0-12.0); Neutrophils # (auto) 2.8 10 ^3/uL (1.6-8.6); White Blood Cell 4.2 10^3/uL (4.4-10.8)
[2025-01-09 06:46] LABS: Eosinophils % (auto) 1.9 % (0.0-7.0); Hematocrit 34.7 % (36.0-46.0); Lymphocytes % (auto) 20.5 % (10.0-50.0); Mean Corpuscular Hemoglobin 26.4 pg (28.0-32.0); Mean Corpuscular Volume 77.7 fL (80.0-100.0); Neutrophils % (auto) 68.2 % (37.0-80.0); Nucleated Red Blood Cells % 0.7 %; Platelet Count (auto) 134 10^3/uL (140-450); Red Blood Cells 4.47 10^6/uL (4.0-5.20)
[2025-01-09 06:49] LABS: Red Cell Distribution Width 22.1 % (11.8-14.3)
[2025-01-09 07:00] LABS: Albumin 4.2 g/dL (3.2-4.8); Anion Gap 8 (5-15); Aspartate Aminotransferase 26 U/L (13-40); BUN/Creatinine Ratio 20.3 (10.0-20.0); Bilirubin, Total 0.5 mg/dL (0.2-1.0); Blood Urea Nitrogen 14 mg/dL (9-23); Carbon Dioxide 26 mmol/L (20-31); Sodium 142 mmol/L (136-145); Total Protein 7.1 g/dL (5.7-8.2)
[2025-01-09 07:04] LABS: Alanine Aminotransferase 41 U/L (7-40); Alkaline Phosphatase 124 U/L (46-116); Chloride 108 mmol/L (98-107); Glucose 119 mg/dL (74-106)
--- NOTE | 2025-01-09 14:28 | DVHSR ---
APPROVED REPORT EXAM: LIMITED Two-dimensional and M-mode echocardiogram with Doppler and color Doppler. Blood Pressure: 114/74 mmHg INDICATION elevated trops RISK FACTORS Obesity: Height: 5'2, Weight: 283 DIMENSIONS LVDd5.6 (3.8-5.7cm)LA (2D) (1.9-4.0cm)Aortic Root3.2 (2.0-3.7cm) LVDs4.9 (2.5-4.0cm)LA (MM) (1.9-4.0cm)Aortic Cusp Exc3.4 (1.5-2.0cm) EF (%) 25.0 (55-70%)Rt. Atrium (1.9-4.0cm)Asc. Aorta3.4 cm IVSd1.0 (0.7-1.1cm)RV (D) (1.8-2.4cm) PWd1.3 (0.7-1.1cm) Mitral Valve MitralMitral Stenosis E wave1.21m/sMV Mean GR.mmHg A wave0.88m/sMV Peak GR.89mmHg E/A ratio1.42D MVAcm2 DECEL [id number] 1/2 Timems Aortic Valve Aortic ValveAortic Stenosis V10.82m/Jessie Mean GR.6mmHg V21.50m/Jessie Peak GR.9mmHg LVOT Diameter2.2 (1.8-2.4cm)Doppler AVA2.08cm2 Pulmonic Valve V20.98m/s Other Information Quality : Technically LimitedRhythm : Technically limited study due to patient position.body habitus. Conclusion very limited study lvef 35% by visual estimate RV not well seen valves not well seen consider wang needs interval echo with JASON goel her primary team
--- NOTE | 2025-01-09 15:49 | DVHPN2 ---
Reviewed: Care Plan, H&P, Labs, Medications, Previous Orders Changes from previous H/P or p: No Changes General: Per HPI Eyes: No Pain, No Vision change, No Conjunctivae inflammation, No Eyelid inflammation, No Other, No Redness ENT: No Ear pain, No Ear discharge, No Nose pain, No Nose discharge, No Nose congestion, No Mouth pain, No Mouth swelling, No Throat pain, No Throat swelling, No Other Cardiovascular: Chest Pain, Palpitations; No Orthopnea, No Paroxysmal Noc. Dyspnea; Edema; No Lt Headedness; Other (Dizzy spells) Respiratory: No Cough, No Dry, No Shortness of breath, No SOB with excertion, No Wheezing, No Hemoptysis, No Pleuritic Pain, No Sputum, No Other Gastrointestinal: No Nausea, No Vomiting, No Abdominal Pain, No Diarrhea, No Constipation, No Melena, No Hematochezia, No Other Genitourinary: No Dysuria, No Frequency, No Incontinence, No Hematuria, No Retention, No Other Musculoskeletal: No other, No neck pain, No shoulder pain, No arm pain, No back pain, No hand pain, No leg pain, No foot pain Skin: No Rash, No Lesions, No Jaundice, No Bruising, No Other Objective Vitals Vital Signs Date Time Temp Pulse Resp B/P (MAP) Pulse Ox O2 Delivery O2 Flow Rate FiO2 01/09/25 12:54 98.0 81 17 142/83 (102) 98 98.0 01/09/25 07:55 Room Air* 0 21 Intake/Output Intake and Output 01/09/25 07:00 Intake Total 925 ml Balance 925 ml Intake Oral 925 ml # Voids 5 # Bowel Movements 1 General Appearance: Alert, Oriented X3, Cooperative, No acute distress HEENT: Atraumatic Cardiovascular: Regular rate, Normal S1, Normal S2 Abdomen: Normal bowel sounds, Soft Medications Current Medications Medications Dose Ordered Sig/Raghu Route Start Time Stop Time Status Last Admin Dose Admin Aspirin 81 mg DAILY PO 01/08/25 10:00 01/09/25 09:26 81 MG Hydralazine HCl 10 mg Q6HP PRN IV 01/08/25 01:00 Metoprolol Tartrate 25 mg BID PO 01/08/25 10:00 01/09/25 09:26 25 MG Sodium Chloride 10 ml Q8HR IV 01/08/25 06:00 01/09/25 13:53 10 ML Acetaminophen/ Hydrocodone Bitart 1 tab Q4HP PRN PO 01/08/25 01:00 Ondansetron HCl 4 mg Q4HP PRN IV 01/08/25 01:00 Docusate Sodium 100 mg BIDPRN PRN PO 01/08/25 01:00 Acetaminophen 650 mg Q6HP PRN PO 01/08/25 01:00 Nitroglycerin 0.4 mg Q5MINP PRN SL 01/08/25 02:00 Morphine Sulfate 2 mg Q30M PRN IV 01/08/25 02:00 Laboratory Results Laboratory Tests 01/09/25 05:03 Chemistry Test 01/09/25 05:03 Albumin 4.2 g/dL (3.2-4.8) Calcium Level 10.0 mg/dL (8.7-10.4) Total Protein 7.1 g/dL (5.7-8.2) LFT Test 01/09/25 05:03 Alanine Aminotransferase (ALT) 41 U/L (7-40) H Alkaline Phosphatase 124 U/L (46-116) H Aspartate Amino Transferase (AST) 26 U/L (13-40) Total Bilirubin 0.5 mg/dL (0.2-1.0) Labs and/or images reviewed: Labs reviewed by me, Image(s) reviewed by me Assessment/Plan Assessment/Plan The patient is a 54-year-old female with past medical history of uterine cancer and hypertension who presented to [facility] ED with complaint of chest pain. Patient is currently on chemotherapy every 3 weeks, complaining of left-sided chest pain, intermittent, nonradiating, associated with dizziness, palpitations heart rate in the 140s, getting worse that prompted this visit. Patient was seen and evaluated in the ED, laboratory data shows WBC 4.4, platelets 119, hemoglobin 12.1, hematocrit 35.7, glucose 140, sodium 143, potassium 4.1, BUN 14, creatinine 0.71, troponin 116, blood pressure 160/90, heart rate 145 trending down to 104, temperature 98.2 F, O2 saturation 99% on oxygen. CT angiography showed no evidence of acute intrathoracic abnormality. Please see medication orders section in the computer. On my assessment, patient denies chest pain at this moment, no headache, no dizziness, no diaphoresis, currently on oxygen, no nausea, no vomiting, no fever, no chills. Patient was admitted for further evaluation and medical management. Acute chest pain, ruling out ACS Shortness of breath Uterine cancer Malignant neoplasm of uterus, part unspecified large body habitus 01/09/2025: echo per cardio awaiting for full cardiology evaluation Plan discussed with: Patient Date of Service: January 09, 2025 Billing Provider: KIRILL HARMON DO Common Visit Codes: [id number] INP/OBS CARE(HIGH) KIRILL HARMON DO January 09, 2025 15:49
[2025-01-09] MEDS: METOPROLOL TARTRATE 25 MG TAB PO ONE (20:37)
[2025-01-10] VITALS (7 sets, daily range): BP systolic 116–140; BP diastolic 63–83; PULSE 68–93; RESP 17–20; TEMP 98.1–98.6; O2SAT 95–99
[2025-01-10] MEDS ORDERED: METOPROLOL SUCCINATE XL 50 MG TAB PO SCH (10:00)
[2025-01-10] MEDS ORDERED: METOPROLOL TARTRATE 25 MG TAB PO SCH (10:00)
[2025-01-10] MEDS: EMPAGLIFLOZIN 10 MG TAB PO SCH (10:05)
--- NOTE | 2025-01-10 10:17 | DVHPN2 ---
Progress Note Date Seen: Jan 10, 2025 Medical Necessity Reason Pt with a Central, PICC or Fol: No Subjective Patient reports: Feels better Objective vital signs Vital Sign Date Time Temp Pulse Resp B/P (MAP) Pulse Ox O2 Delivery O2 Flow Rate FiO2 01/10/25 08:38 98.4 90 17 128/68 (88) 97 98.4 01/09/25 20:00 Room Air* 0 21 Total Intake and Output 01/09/25 01/09/25 01/10/25 15:00 23:00 07:00 Intake Total 425 ml 300 ml Balance 425 ml 300 ml medications Current Medications Medications Dose Ordered Sig/Raghu Route Start Time Stop Time Status Last Admin Dose Admin Aspirin 81 mg DAILY PO 01/08/25 10:00 01/10/25 10:05 81 MG Hydralazine HCl 10 mg Q6HP PRN IV 01/08/25 01:00 Sodium Chloride 10 ml Q8HR IV 01/08/25 06:00 01/10/25 05:30 10 ML Acetaminophen/ Hydrocodone Bitart 1 tab Q4HP PRN PO 01/08/25 01:00 Ondansetron HCl 4 mg Q4HP PRN IV 01/08/25 01:00 Docusate Sodium 100 mg BIDPRN PRN PO 01/08/25 01:00 Acetaminophen 650 mg Q6HP PRN PO 01/08/25 01:00 Nitroglycerin 0.4 mg Q5MINP PRN SL 01/08/25 02:00 Morphine Sulfate 2 mg Q30M PRN IV 01/08/25 02:00 Empaglifozin 10 mg DAILY PO 01/10/25 10:00 01/10/25 10:05 10 MG Metoprolol Tartrate 25 mg BID PO 01/10/25 10:00 Examination: GENERAL:Abnormal, HEENT:Abnormal, LUNGS:Abnormal, CVS:Abnormal, ABDOMEN:Abnormal laboratory and microbiology Laboratory Tests 01/09/25 05:03 Test 01/09/25 05:03 Range/Units Serum Glucose 119 H 74-106 mg/dL Problem List/Assessment/Plan Problem List/Assessment/Plan new onset LV dysfunction obesity tachycardia dc home on entresto dc arb toprol xl 50 mg daily jardiance 10 mg daily Fu [facility] cards in 1-2 weeks pt agreest o plan , all questions answered thoroughly and pt is content Plan discussed with: Patient Date of Service: Jan 10, 2025 Billing Provider: WILDER HO MD Common Visit Codes: NOT BILLABLE WILDER HO MD Jan 10, 2025 10:17
--- NOTE | 2025-01-10 12:27 | ECG ---
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
[2025-01-10] MEDS: METOPROLOL SUCCINATE XL 50 MG TAB PO ONE (12:32)
[2025-01-10] MEDS ORDERED: METO-6 PO (16:15)
[2025-01-10] MEDS ORDERED: EMPA1TAB PO (16:15)
[2025-01-10] MEDS ORDERED: ASPI-325 PO (16:15)
--- NOTE | 2025-01-10 16:17 | DVHDS2 ---
Discharge Summary Date of Admission January 08, 2025 at 01:48 Date of Discharge: Jan 10, 2025 Labs/Diagnostic Data: Laboratory Results Test 01/09/25 05:03 01/08/25 10:21 White Blood Count 4.2 10^3/uL (4.4-10.8) Red Blood Count 4.47 10^6/uL (4.0-5.20) Hemoglobin 11.8 g/dL (12.2-16.2) Hematocrit 34.7 % (36.0-46.0) Mean Corpuscular Volume 77.7 fL (80.0-100.0) Mean Corpuscular Hemoglobin 26.4 pg (28.0-32.0) Mean Corpuscular Hemoglobin Concent 34.0 g/dL (32.0-36.0) Red Cell Distribution Width 22.1 % (11.8-14.3) Platelet Count 134 10^3/uL (140-450) Mean Platelet Volume 6.4 fL (6.9-10.8) Neutrophils (%) (Auto) 68.2 % (37.0-80.0) Lymphocytes (%) (Auto) 20.5 % (10.0-50.0) Monocytes (%) (Auto) 8.8 % (0.0-12.0) Eosinophils (%) (Auto) 1.9 % (0.0-7.0) Basophils (%) (Auto) 0.6 % (0.0-2.0) Neutrophils # (Auto) 2.8 10 ^3/uL (1.6-8.6) Lymphocytes # (Auto) 0.9 10 ^3/uL (0.4-5.4) Monocytes # (Auto) 0.4 10 ^3/uL (0-1.3) Eosinophils # (Auto) 0.1 10 ^3/uL (0-0.8) Basophils # (Auto) 0 10 ^3/uL (0-0.2) Nucleated Red Blood Cells 0.7 % Sodium Level 142 mmol/L (136-145) Potassium Level 4.0 mmol/L (3.5-5.1) Chloride Level 108 mmol/L (98-107) Carbon Dioxide Level 26 mmol/L (20-31) Anion Gap 8 (5-15) Blood Urea Nitrogen 14 mg/dL (9-23) Creatinine 0.69 mg/dL (0.550-1.02) Glomerular Filtration Rate Calc 102 mL/min (>90) BUN/Creatinine Ratio 20.3 (10.0-20.0) Serum Glucose 119 mg/dL (74-106) Calcium Level 10.0 mg/dL (8.7-10.4) Total Bilirubin 0.5 mg/dL (0.2-1.0) Aspartate Amino Transferase (AST) 26 U/L (13-40) Alanine Aminotransferase (ALT) 41 U/L (7-40) Alkaline Phosphatase 124 U/L (46-116) Total Protein 7.1 g/dL (5.7-8.2) Albumin 4.2 g/dL (3.2-4.8) Prothrombin Time 10.3 sec (9.3-11.8) Prothrombin Time INR 0.97 (0.9-1.15) Activated Partial Thromboplast Time 26.0 SEC (24.5-34.5) Hemoglobin A1c 5.3 % A1C (<5.7) Troponin I High Sensitivity 54 ng/L (</=34) B-Type Natriuretic Peptide 204.28 pg/mL (0-100) Triglycerides Level 114 mg/dL (< 150) Cholesterol Level 218 mg/dL (< 200) LDL Cholesterol 167 mg/dL (< 100) HDL Cholesterol 43 mg/dL (40-59) Other Laboratory Tests 01/09/25 05:03 Brief Hx & Hospital Course: The patient is a 54-year-old female with past medical history of uterine cancer and hypertension who presented to [facility] ED with complaint of chest pain. Patient is currently on chemotherapy every 3 weeks, complaining of left-sided chest pain, intermittent, nonradiating, associated with dizziness, palpitations heart rate in the 140s, getting worse that prompted this visit. Patient was seen and evaluated in the ED, laboratory data shows WBC 4.4, platelets 119, hemoglobin 12.1, hematocrit 35.7, glucose 140, sodium 143, potassium 4.1, BUN 14, creatinine 0.71, troponin 116, blood pressure 160/90, heart rate 145 trending down to 104, temperature 98.2 F, O2 saturation 99% on oxygen. CT angiography showed no evidence of acute intrathoracic abnormality. Please see medication orders section in the computer. On my assessment, patient denies chest pain at this moment, no headache, no dizziness, no diaphoresis, currently on oxygen, no nausea, no vomiting, no fever, no chills. Patient was admitted for further evaluation and medical management. Acute chest pain, ruling out ACS Shortness of breath Uterine cancer Malignant neoplasm of uterus, part unspecified large body habitus 01/09/2025: echo per cardio awaiting for full cardiology evaluation 01/10/2025: discharged to home with self care pt to continue to f/u with [facility] Condition at Discharge: Fair Final Diagnosis/Problems List see above Discharge Disposition: Home Discharge Instruct/Medications Diet: Cardiac 2g Na,low cholest Activity: No Restrictions, As Tolerated Discharge Statement: "Patient was advised to return to the ER or call 911 if any headaches, dizziness, shortness of breath, chest pain, abdominal pain, bleeding, fevers, or worsening of medical condition. Patient was counseled about treatment plan, medications, possible side effects, patientverbalized understanding. All questions were answered to the best of my ability. This discharge took greater then 30 minutes in planning, reviewing documentation, counseling the patient, and discussing with other team members." ASSESSMENT ASSESSMENT Assessment Date of Service: Jan 10, 2025 Billing Provider: KIRILL HARMON DO Common Visit Codes: [id number] DISCH DAY >30min KIRILL HARMON DO Jan 10, 2025 16:17
[2025-01-10] MEDS ORDERED: SACU1TAB PO (17:00)
[2025-01-11] MEDS ORDERED: METOPROLOL SUCCINATE XL 50 MG TAB PO SCH (10:00)
== END 2025-01-10 18:34 | disposition home or self-care (01) | DRG 194 ==
LOC: ER 19:19 → OVERFLOW 01-08 01:48 → TELE-WESTW 01-08 03:23
PROVIDERS: ADMIT Internal Medicine; ATTEND Internal Medicine
DX: I11.0 Hypertensive heart disease with heart failure (principal); Z68.43 Body mass index [BMI] 50.0-59.9, adult; C55 Malignant neoplasm of uterus, part unspecified; I50.21 Acute systolic (congestive) heart failure; E66.9 Obesity, unspecified; R00.0 Tachycardia, unspecified; Z90.710 Acquired absence of both cervix and uterus; Z85.42 Personal history of malignant neoplasm of other parts of uterus; Z51.11 Encounter for antineoplastic chemotherapy
CPT/HCPCS: 36415; 71045; 71275; 80048; 80053; 80061; 83036; 83880; 84484; 85025; 85610; 85730; 93005; 93306; 99291; G0378

== ENCOUNTER 2025-02-02 23:08 | Inpatient (IN) | payer MEDICAID ==
[~2025-02-02] VITALS: Ht 157.5 cm; Wt 127.2 kg
[~2025-02-02 23:08] MED LIST changes: +ASPI-325 PO; -CEPH500C PO; +EMPA1TAB PO; -FER325T PO; +LOS25T PO; -MEDR5TAB28 PO; +METO-6 PO; +SACU1TAB PO
--- NOTE | 2025-02-02 23:30 | ED.PDOC ---
HPI Comments 54 year old female presents to the ED with a chief compliant of palpitations onset today (02/02/25) about 1 hour ago. Patient states she came to [facility] medical records today, after reading results began experiencing palpations, has not resolved. Patient as recently discharged from [facility] on 01/10/25, was admitted for chest pain. PMHx uterine cancer, HTN. Denies chest pain, nausea, vomiting, diarrhea, headache, shortness of breath, dizziness. No other symptoms or modifying factors present at this time. Chief Complaint: Palpitations Time Seen by MD: 23:20 Primary Care Provider: Dr. Palomo Reviewed Notes: Medications, Allergies Allergies: Coded Allergies: NO KNOWN ALLERGIES (Unverified , 06/17/23) Home Meds Active Scripts Sacubitril-Valsartan (Entresto 24-26 mg) 1 Tab Tab, 1 TAB PO DAILY for 30 Days, #30 TAB 4 Refills Prov:KIRILL HARMON DO 01/10/25 Empagliflozin (Jardiance) 10 Mg Tab, 10 MG PO DAILY for 30 Days, #30 TAB 4 Refills Prov:KIRILL HARMON DO 01/10/25 Aspirin (Aspirin Low Dose) 81 Mg Tab, 81 MG PO DAILY for 30 Days, #30 TAB 4 Refills Prov:KIRILL HARMON DO 01/10/25 Metoprolol Succinate (Toprol Xl) 50 Mg Tab, 50 MG PO DAILY for 30 Days, #30 TAB 4 Refills Prov:KIRILL HARMON DO 01/10/25 Reported Medications Losartan Potassium (Losartan Potassium) 25 Mg Tab, 1 TAB PO DAILY 01/08/25 Information Source: Patient Mode of Arrival: Ambulatory Severity: Moderate Timing: Hours Duration: Since onset Prehospital treatment: None Onset: At Rest Cardiac Risk Factors: HTN PE Risk Factors: None History of: Similar pain in past Modifying Factors: Nothing Associated Signs and Symptoms: Palpitations Past Medical History PAST MEDICAL HISTORY: Cancer, CHF, HTN Surgical History: , Hysterectomy CERTIFIED SURGICAL TECHNOLOGIST History: No Pertinent CERTIFIED SURGICAL TECHNOLOGIST History Social History Smoker: Non-Smoker Alcohol: Denies ETOH Use Drugs: Denies Drug Use Lives In: Home Constitutional: denies: chills, diaphoresis, fatigue, fever, malaise, sweats, weakness, others EENTM: denies: blurred vision, double vision, ear bleeding, ear discharge, ear drainage, ear pain, ear ringing, eye pain, eye redness, hearing loss, mouth p ain, mouth swelling, nasal discharge, nose bleeding, nose congestion, nose pain, photophobia, tearing, throat pain, throat swelling, voice changes, others Respiratory: denies: cough, hemoptysis, orthopnea, SOB at rest, shortness of br eath, SOB with excertion, stridor, wheezing, others Cardiovascular: reports: palpitations; denies: chest pain, dizzy spells, diaphoresis, Dyspnea on exertion, edema, irregular heart beat, left arm pain, lightheadedness, PND, syncope, others Gastrointestinal: denies: abdomen distended, abdominal pain, blood streaked loree wels, constipated, diarrhea, dysphagia, difficulty swallowing, hematemesis, melena, nausea, poor appetite, poor fluid intake, rectal bleeding, rectal pain, vomiting, others Genitourinary: denies: abnormal vagina bleeding, burning, dyspareunia, dysuria, flank pain, frequency, hematuria, incontinence, pain, , vagina discharge, urgency, others Neurological: denies: dizziness, fainting, headache, left sided numbness, left sided weakness, numbness, paresthesia, pre-existing deficit, right sided numbness, right sided weakness, seizure, speech problems, tingling, tremors, weakness, others Musculoskeletal: denies: back pain, gout, joint pain, joint swelling, muscle pain, muscle stiffness, neck pain, others Integumetry: denies: bruises, change in color, change in hair/nails, dryness, laceration, lesions, lumps, rash, wounds, others Allergic/Immunocompromised: denies: Difficulty Healing, Frequent Infections, Hives, Itching, others Hematologic/Lymphatic: denies: anemia, blood clots, easy bleeding, easy bruis ing, swollen glands, others Endocrine: denies: excessive hunger, excessive sweating, excessive thirst, exc essive urination, flushing, intolerance to cold, intolerance to heat, unexplained weight gain, unexplained weight loss, others Psychiatric: denies: anxiety, bipolar disorder, depression, hopeless, panic disorder, schizophrenia, sleepless, suicidal, others All Other Systems: Reviewed and Negative Physical Exam General Appearance: Normal HEENT: Normal ENT Inspection, Pharynx Normal, TMs Normal Neck: Full Range of Motion, Non-Tender, Normal, Normal Inspection Respiratory: Chest Non-Tender, Lungs Clear, No Accessory Muscle Use, No Respiratory Distress, Normal Breath Sounds Cardiovascular: No Edema, No JVD, No Murmur, No Gallop, Normal Peripheral Pulses, Tachycardia Breast Exam: Deferred Gastrointestinal: No Organomegaly, Non Tender, No Pulsatile Mass, Normal Bowel Sounds, Soft Genitalia: Deferred Pelvic: Deferred Rectal: Deferred Extremities: No calf tenderness, Normal capillary refill, Normal inspection, Normal range of motion, Non-tender, No pedal edema Musculoskeletal : Apperance: Normal Neurologic: Alert, porcelain enamel sprayer II-XII nml as Tested, No Motor Deficits, Normal Affect, Normal Mood, No Sensory Deficits Cerebellar Function: Normal Reflexes: Normal Skin: Dry, Normal Color, Warm Lymphatic: No Adenopathy Was a procedure done? Was a procedure done?: No CP Differential Dx Differential Diagnosis: MAT, IL, PVC's Differential Diagnosis: HTN Essential, HTN Accelerated Differential Diagnosis: Gastritis, Myocardial Infarction, Pericarditis X-Ray, Labs, Meds, VS Vital Signs Date Time Temp Pulse Resp B/P (MAP) Pulse Ox O2 Delivery O2 Flow Rate FiO2 02/03/25 00:20 117 02/02/25 23:23 98.2 132 16 150/92 (111) 98 98.2 02/02/25 23:17 130 Lab Test 02/03/25 00:29 02/02/25 23:25 Range/Units Troponin I High Sensitivity 35 *H 31 </=34 ng/L White Blood Count 9.9 4.4-10.8 10^3/uL Red Blood Count 5.22 H 4.0-5.20 10^6/uL Hemoglobin 13.3 12.2-16.2 g/dL Hematocrit 39.2 36.0-46.0 % Mean Corpuscular Volume 75.2 L 80.0-100.0 fL Mean Corpuscular Hemoglobin 25.5 L 28.0-32.0 pg Mean Corpuscular Hemoglobin Concent 33.9 32.0-36.0 g/dL Red Cell Distribution Width 21.8 H 11.8-14.3 % Platelet Count 186 140-450 10^3/uL Mean Platelet Volume 6.5 L 6.9-10.8 fL Neutrophils (%) (Auto) 75.4 37.0-80.0 % Lymphocytes (%) (Auto) 13.6 10.0-50.0 % Monocytes (%) (Auto) 8.1 0.0-12.0 % Eosinophils (%) (Auto) 2.3 0.0-7.0 % Basophils (%) (Auto) 0.6 0.0-2.0 % Neutrophils # (Auto) 7.4 1.6-8.6 10 ^3/uL Lymphocytes # (Auto) 1.3 0.4-5.4 10 ^3/uL Monocytes # (Auto) 0.8 0-1.3 10 ^3/uL Eosinophils # (Auto) 0.2 0-0.8 10 ^3/uL Basophils # (Auto) 0.1 0-0.2 10 ^3/uL Nucleated Red Blood Cells 0.3 % Sodium Level 140 136-145 mmol/L Potassium Level 3.9 3.5-5.1 mmol/L Chloride Level 104 98-107 mmol/L Carbon Dioxide Level 25 20-31 mmol/L Anion Gap 11 5-15 Blood Urea Nitrogen 14 9-23 mg/dL Creatinine 0.81 0.550-1.02 mg/dL Glomerular Filtration Rate Calc 86 >90 mL/min BUN/Creatinine Ratio 17.3 10.0-20.0 Serum Glucose 130 H 74-106 mg/dL Calcium Level 9.6 8.7-10.4 mg/dL Time of 1ST Reevaluation: 23:50 Reevaluation 1ST: Unchanged Patient Education/Counseling: Diagnosis, Treatment, Prognosis Family Education/Counseling: No Family Present SEPSIS Sepsis Screen Physician Orders Electrocardigram (02/02/25 23:21) Electrocardigram (02/03/25 02:21) Urinalysis (02/02/25 23:27) Troponin-I Hs (02/03/25 02:27) Chest Portable (02/03/25 01:34) Vital Signs Date Time Temp Pulse Resp B/P (MAP) Pulse Ox O2 Delivery O2 Flow Rate FiO2 02/03/25 00:20 117 02/02/25 23:23 98.2 132 16 150/92 (111) 98 98.2 02/02/25 23:17 130 Laboratory Tests Test 02/02/25 23:25 White Blood Count 9.9 10^3/uL (4.4-10.8) Departure 1 Departure Time of Disposition: 01:57 (Patient presented with palpitations that was concerning for possible STEMI, ACS, PE, Pneumonia, Muscle Strain, COPD, Dissection. Data: 1. I ordered and reviewed the result of at least 3 labs including a CBC, BMP, and Troponin. 2. I independently interpreted the following tests: EKG which shows and Chest X-ray which shows .Risk:This patient has a high risk of morbidity due to further diagnostic testing or treatment and may suffer from an acute cardiac or respiratory disorder. Workup reveals concern ACS an elevated troponin and patient should be admitted for further workup and possible expert consultation. ) Impression: Primary Impression: Elevated troponin Additional Impression: Palpitations Disposition: ADMITTED INPATIENT Admit to: Med Surg Condition: Guarded Critical Care Note Critical Care Time?: Yes Critical care comment: Palpitations Authorized and Performed by: Kelly Loja MD Total critical care time: Approximately 38 minutes Due to a high probability of clinically significant, life threatening deterioration, the patient required my highest level of preparedness to intervene emergently and I personally spent this critical care time directly and personally managing the patient. This critical care time included obtaining a history; examining the patient; pulse oximetry; ordering and review of studies; arranging urgent treatment with development of a management plan; evaluation of patient's response to treatment; frequent reassessment; and, discussions with other providers. This critical care time was performed to assess and manage the high probability of imminent, life-threatening deterioration that could result in multi-organ failure. It was exclusive of separately billable procedures and treating other patients and teaching time. Please see my other sections and the rest of the note for further information on patient assessment and treatment. Stability Stability form required: No Heart Score Heart Score: Heart Score Response (Comments) Value History Slightly Suspicious 0 EKG Repolarization Disturb 1 Age 45-64 1 Risk Factors 1 or 2 risk factors 1 Troponin 1-2 x's Normal limit 1 Total 4 I personally scribed for KELLY LOJA MD ([email or web address]) on 02/02/25 at 23:30. Electronically submitted by Marie Rangel ([email or web address]). KELLY LOJA MD Feb 02, 2025 23:30
[2025-02-02 23:49] LABS: Basophils # (auto) 0.1 10 ^3/uL (0-0.2); Basophils % (auto) 0.6 % (0.0-2.0); Eosinophils # (auto) 0.2 10 ^3/uL (0-0.8); Eosinophils % (auto) 2.3 % (0.0-7.0); Hematocrit 39.2 % (36.0-46.0); Hemoglobin 13.3 g/dL (12.2-16.2); Lymphocytes # (auto) 1.3 10 ^3/uL (0.4-5.4); Lymphocytes % (auto) 13.6 % (10.0-50.0); Mean Corpuscular Hemoglobin 25.5 pg (28.0-32.0); Mean Corpuscular Hgb Conc. 33.9 g/dL (32.0-36.0); Mean Corpuscular Volume 75.2 fL (80.0-100.0); Monocytes # (auto) 0.8 10 ^3/uL (0-1.3); Monocytes % (auto) 8.1 % (0.0-12.0); Neutrophils # (auto) 7.4 10 ^3/uL (1.6-8.6); Neutrophils % (auto) 75.4 % (37.0-80.0); Nucleated Red Blood Cells % 0.3 %; Platelet Count (auto) 186 10^3/uL (140-450); Red Blood Cells 5.22 10^6/uL (4.0-5.20); Red Cell Distribution Width 21.8 % (11.8-14.3); White Blood Cell 9.9 10^3/uL (4.4-10.8)
[2025-02-02 23:58] LABS: Chloride 104 mmol/L (98-107); Potassium 3.9 mmol/L (3.5-5.1); Sodium 140 mmol/L (136-145)
[2025-02-02 23:59] LABS: Anion Gap 11 (5-15); Calcium 9.6 mg/dL (8.7-10.4); Carbon Dioxide 25 mmol/L (20-31)
[2025-02-03 00:04] LABS: BUN/Creatinine Ratio 17.3 (10.0-20.0); Blood Urea Nitrogen 14 mg/dL (9-23)
[2025-02-03 00:06] LABS: Glucose 130 mg/dL (74-106)
--- NOTE | 2025-02-03 00:44 | ECG ---
[facility] Test Date: 2025-02-03 Test Time: 00:20:09 Pat Name: MELISSA ONEILL Department: ED Room: Gender: F Drying Can Worker: HAYLEY : 1970 Requested By: KELLY LOJA Order Number: [id number] Reading MD: Measurements Intervals [place] Rate: 117 P: 0 [place]: 133 QRS: 9 QRSD: 82 T: -37 QT: 328 QTc: 458 Interpretive Statements Sinus tachycardia Borderline repolarization abnormality Please click the below link to view image of tracing.
--- NOTE | 2025-02-03 02:16 | ECG ---
[facility] Test Date: 2025-02-03 Test Time: 02:14:41 Pat Name: MELISSA ONEILL Department: ED Room: Gender: F Leacher: HAYLEY : 1970 Requested By: KELLY LOJA Order Number: [id number] Reading MD: Measurements Intervals [place] Rate: 116 P: 96 [place]: 164 QRS: 32 QRSD: 84 T: -50 QT: 324 QTc: 451 Interpretive Statements Sinus tachycardia Borderline repolarization abnormality Please click the below link to view image of tracing.
[2025-02-03] MEDS ORDERED: MORPHINE SULFATE INJ 2 MG/ml SYRG IV PRN (04:00)
[2025-02-03] MEDS ORDERED: ONDANSETRON HCL 4 MG/2 ML VIAL IV PRN (04:00)
[2025-02-03] MEDS: METOPROLOL TARTRATE 25 MG TAB PO ONE (04:00)
[2025-02-03] MEDS ORDERED: NITROGLYCERIN 0.4 MG SL TAB SL PRN (04:00)
--- NOTE | 2025-02-03 05:06 | DVHHP2 ---
History of Present Illness Reason for Visit: Palpitations History of Present Illness 54-year-old female presents for evaluation of palpitations. Patient reports a one day history of palpitations with associated dizziness in mild shortness for breath. Denies chest pain. Past Medical History Hypertension, cancer Past Surgical History Hysterectomy, Family History Noncontributory Smoke: No ALCOHOL: none Drugs: None Lives: with Family Review of Systems Review of Systems Review of systems are currently negative otherwise addressed in HPI. Allergies: Coded Allergies: NO KNOWN ALLERGIES (Unverified , 06/17/23) Medications Current Medications Medications Dose Ordered Sig/Raghu Route Start Time Stop Time Status Last Admin Dose Admin Metoprolol Tartrate 25 mg BID PO 02/03/25 10:00 Aspirin 81 mg DAILY PO 02/03/25 10:00 Atorvastatin Calcium 10 mg HS PO 02/03/25 22:00 Losartan Potassium 25 mg DAILY PO 02/03/25 10:00 Ondansetron HCl 4 mg Q4HP PRN IV 02/03/25 04:00 Nitroglycerin 0.4 mg Q5MINP PRN SL 02/03/25 04:00 Morphine Sulfate 2 mg Q30M PRN IV 02/03/25 04:00 Exam Vital Signs Vital Signs Date Time Temp Pulse Resp B/P (MAP) Pulse Ox O2 Delivery O2 Flow Rate FiO2 02/03/25 02:14 116 02/02/25 23:23 98.2 16 150/92 (111) 98 98.2 Exam Gen: 54-year-old female in no apparent distress. Skin: Warm, dry, normal color and texture, no rash. HEENT: Normocephalic atraumatic, mucous membranes moist and pink. Neck: Cervical and supraclavicular nodes normal without enlargement, trachea is midline, thyroid gland is normal without masses. Pulmonary: Clear to auscultation and percussion bilaterally. Cardiac: Sinus tachycardic Abdomen: Soft, nontender, nondistended, bowel sounds present all 4 quadrants, no guarding, no rigidity, no organomegaly. Extremities: No cyanosis, clubbing, no edema Neuro: Cranial nerves II through XII grossly intact, normal affect and speech, no focal motor deficits. Labs/Xrays ORDERING PHYSICIAN: SANTA GUDINO RESIDENT PROCEDURE(s): ECIDC - ECHO 2D MODE CARDIAC DOP REASON: elevated trops ORDER NUMBER(s): [id number], ACCESSION NUMBER(s): [id number] APPROVED REPORT EXAM: LIMITED Two-dimensional and M-mode echocardiogram with Doppler and color Doppler. Blood Pressure: 114/74 mmHg INDICATION elevated [facility] RISK FACTORS Obesity: Height: 5'2, Weight: 283 DIMENSIONS LVDd 5.6 (3.8-5.7cm) LA (2D) (1.9-4.0cm) Aortic Root 3.2 (2.0- 3.7cm) LVDs 4.9 (2.5-4.0cm) LA (MM) (1.9-4.0cm) Aortic Cusp Exc 3.4 (1.5- 2.0cm) EF (%) 25.0 (55-70%) Rt. Atrium (1.9-4.0cm) Asc. Aorta 3.4 cm IVSd 1.0 (0.7-1.1cm) RV (D) (1.8-2.4cm) PWd 1.3 (0.7-1.1cm) Mitral Valve Mitral Mitral Stenosis E wave 1.21m/s MV Mean GR. mmHg A wave 0.88m/s MV Peak GR. 89mmHg E/A ratio 1.4 2D MVA cm2 DECEL Time 66ms PRESS 1/2 Time ms Aortic Valve Aortic Valve Aortic Stenosis V1 0.82m/s AO Mean GR. 6mmHg V2 1.50m/s AO Peak GR. 9mmHg LVOT Diameter 2.2 (1.8-2.4cm) Doppler ANGEL 2.08cm2 Pulmonic Valve V2 0.98m/s Other Information Quality : Technically Limited Rhythm : Technically limited study due to patient position.body habitus. Conclusion very limited study lvef 35% by visual estimate RV not well seen valves not well seen consider wang needs interval echo with [facility] manasa her primary team ORDERING PHYSICIAN: LILIAN PEREZ PROCEDURE(s): CXR1 - CHEST XRAY 1 VIEW REASON: Palpitations ORDER NUMBER(s): [id number], ACCESSION NUMBER(s): [id number] CHEST RADIOGRAPH Indication: Palpitations Technique: Single frontal view of the chest was obtained COMPARISON: XY CHEST PORTABLE on DOS: 01/07/25 FINDINGS: Lines and Tubes: Right chest port in satisfactory position Lungs: Increased interstitial prominence Pleura: No effusion. No pneumothorax. Cardiomediastinal contours: Cardiomegaly Bones: Unremarkable IMPRESSION: Pulmonary vascular congestion or viral pneumonias ATED BY: BYRON CARDOZA MD DICTATED DATE/TIME: 02/03/25544 SIGNED BY: BYRON CARDOZA MD SIGNED DATE/TIME: 02/03/25544 Labs Test 02/03/25 02:20 02/02/25 23:25 Range/Units Magnesium Level 2.1 1.6-2.6 mg/dL Troponin I High Sensitivity 39 *H </=34 ng/L White Blood Count 9.9 4.4-10.8 10^3/uL Red Blood Count 5.22 H 4.0-5.20 10^6/uL Hemoglobin 13.3 12.2-16.2 g/dL Hematocrit 39.2 36.0-46.0 % Mean Corpuscular Volume 75.2 L 80.0-100.0 fL Mean Corpuscular Hemoglobin 25.5 L 28.0-32.0 pg Mean Corpuscular Hemoglobin Concent 33.9 32.0-36.0 g/dL Red Cell Distribution Width 21.8 H 11.8-14.3 % Platelet Count 186 140-450 10^3/uL Mean Platelet Volume 6.5 L 6.9-10.8 fL Neutrophils (%) (Auto) 75.4 37.0-80.0 % Lymphocytes (%) (Auto) 13.6 10.0-50.0 % Monocytes (%) (Auto) 8.1 0.0-12.0 % Eosinophils (%) (Auto) 2.3 0.0-7.0 % Basophils (%) (Auto) 0.6 0.0-2.0 % Neutrophils # (Auto) 7.4 1.6-8.6 10 ^3/uL Lymphocytes # (Auto) 1.3 0.4-5.4 10 ^3/uL Monocytes # (Auto) 0.8 0-1.3 10 ^3/uL Eosinophils # (Auto) 0.2 0-0.8 10 ^3/uL Basophils # (Auto) 0.1 0-0.2 10 ^3/uL Nucleated Red Blood Cells 0.3 % Sodium Level 140 136-145 mmol/L Potassium Level 3.9 3.5-5.1 mmol/L Chloride Level 104 98-107 mmol/L Carbon Dioxide Level 25 20-31 mmol/L Anion Gap 11 5-15 Blood Urea Nitrogen 14 9-23 mg/dL Creatinine 0.81 0.550-1.02 mg/dL Glomerular Filtration Rate Calc 86 >90 mL/min BUN/Creatinine Ratio 17.3 10.0-20.0 Serum Glucose 130 H 74-106 mg/dL Calcium Level 9.6 8.7-10.4 mg/dL Assessment/Plan Assessment/Plan Assessment Palpitations Sinus tachycardia Hypertension Morbid obesity Plan Admit the patient to telemetry to the hospitalist Cardiology consultation Resume home medications Continue treatment per orders. Plan discussed with: Patient My Orders Orders - LILIAN PEREZ Procedure Category Date Status Time Metoprolol Tartrate PHA 02/03/25 In Process Tablet (Lopressor Ta 10:00 Aspirin Tablet PHA 02/03/25 In Process 10:00 Atorvastatin (Lipitor) PHA 02/03/25 In Process 22:00 Losartan Tablet PHA 02/03/25 In Process (Cozaar Tablet) 10:00 * Cardiology Consult CONS 02/03/25 Transmitted 03:57 Basic Metabolic Panel LAB 02/04/25 Verified 04:00 Admit ADMIT 02/03/25 Transmitted 03:57 Ondansetron Hcl PHA 02/03/25 In Process (Zofran) 04:00 Cardiac DIET 02/03/25 Transmitted Diet-2gna,Lofat,Lochol Breakfast Condition: Fair LELE 02/03/25 In Process 03:57 Bedrest With Bathroom LELE 02/03/25 In Process Privileg 03:57 Nitroglycerin PHA 02/03/25 In Process Sublingual (Ntrostat 04:00 Morphine Sulfate PHA 02/03/25 In Process Injection 04:00 Stat Ekg For Chest LELE 02/03/25 In Process Pain 03:57 Notify Of Changes LELE 02/03/25 In Process From Base 03:57 Roadmaster For LELE 02/03/25 In Process 24 Hours 03:57 Emergency Dysrhythmia LELE 02/03/25 In Process Protocol 03:57 Rhythm Strips Once LELE 02/03/25 In Process Every Shift 03:57 Oxygen By Nasal RT 02/03/25 Transmitted Cannula 03:57 Chest Xray 1 View XY 02/03/25 Logged 04:03 Date of Service: Feb 03, 2025 Billing Provider: LILIAN PEREZ Common Visit Codes: [id number] INP/OBS CARE (HIGH) LILIAN PEREZ Feb 03, 2025 05:07
[2025-02-03 05:18] VITALS: BP 121/65; PULSE 118; RESP 18; TEMP 99.1; O2SAT 95
--- NOTE | 2025-02-03 05:47 | DVH ---
CHEST RADIOGRAPH Indication: Palpitations Technique: Single frontal view of the chest was obtained COMPARISON: XY CHEST PORTABLE on DOS: 01/07/25 FINDINGS: Lines and Tubes: Right chest port in satisfactory position Lungs: Increased interstitial prominence Pleura: No effusion. No pneumothorax. Cardiomediastinal contours: Cardiomegaly Bones: Unremarkable IMPRESSION: Pulmonary vascular congestion or viral pneumonias
[2025-02-03 05:56] LABS: HDL Cholesterol 44 mg/dL (40-59)
[2025-02-03 06:02] LABS: Cholesterol 218 mg/dL (< 200); LDL Cholesterol 171 mg/dL (< 100); Triglycerides 153 mg/dL (< 150)
[2025-02-03] MEDS ORDERED: LOSARTAN POTASSIUM 25 MG TAB PO SCH (10:00)
[2025-02-03] MEDS ORDERED: ASPirin 81 mg TAB PO SCH (10:00)
[2025-02-03] MEDS ORDERED: METOPROLOL TARTRATE 25 MG TAB PO SCH ×2 (10:00)
--- NOTE | 2025-02-03 13:57 | ECG ---
[facility] Test Date: 2025-02-02 Test Time: 23:17:40 Pat Name: MELISSA ONEILL Department: ER Room: [address] [place] [address] Gender: F Manager Research: ALONSO : 1970 Requested By: KELLY LOJA Order Number: [id number] Reading MD: Measurements Intervals [place] Rate: 130 P: 0 [place]: 100 QRS: 10 QRSD: 85 T: 39 QT: 367 QTc: 540 Interpretive Statements Sinus tachycardia LVH by voltage Prolonged QT interval Baseline wander in lead(s) V1 Please click the below link to view image of tracing.
--- NOTE | 2025-02-03 19:48 | DVHDSRES ---
Discharge Summary Date of Admission Feb 03, 2025 at 03:57 Labs/Diagnostic Data: Laboratory Results Test 02/03/25 02:20 02/02/25 23:25 Magnesium Level 2.1 mg/dL (1.6-2.6) Troponin I High Sensitivity 39 ng/L (</=34) Triglycerides Level 153 mg/dL (< 150) Cholesterol Level 218 mg/dL (< 200) LDL Cholesterol 171 mg/dL (< 100) HDL Cholesterol 44 mg/dL (40-59) Thyroid Stimulating Hormone (TSH) 0.96 uIU/mL (0.55-4.78) White Blood Count 9.9 10^3/uL (4.4-10.8) Red Blood Count 5.22 10^6/uL (4.0-5.20) Hemoglobin 13.3 g/dL (12.2-16.2) Hematocrit 39.2 % (36.0-46.0) Mean Corpuscular Volume 75.2 fL (80.0-100.0) Mean Corpuscular Hemoglobin 25.5 pg (28.0-32.0) Mean Corpuscular Hemoglobin Concent 33.9 g/dL (32.0-36.0) Red Cell Distribution Width 21.8 % (11.8-14.3) Platelet Count 186 10^3/uL (140-450) Mean Platelet Volume 6.5 fL (6.9-10.8) Neutrophils (%) (Auto) 75.4 % (37.0-80.0) Lymphocytes (%) (Auto) 13.6 % (10.0-50.0) Monocytes (%) (Auto) 8.1 % (0.0-12.0) Eosinophils (%) (Auto) 2.3 % (0.0-7.0) Basophils (%) (Auto) 0.6 % (0.0-2.0) Neutrophils # (Auto) 7.4 10 ^3/uL (1.6-8.6) Lymphocytes # (Auto) 1.3 10 ^3/uL (0.4-5.4) Monocytes # (Auto) 0.8 10 ^3/uL (0-1.3) Eosinophils # (Auto) 0.2 10 ^3/uL (0-0.8) Basophils # (Auto) 0.1 10 ^3/uL (0-0.2) Nucleated Red Blood Cells 0.3 % Sodium Level 140 mmol/L (136-145) Potassium Level 3.9 mmol/L (3.5-5.1) Chloride Level 104 mmol/L (98-107) Carbon Dioxide Level 25 mmol/L (20-31) Anion Gap 11 (5-15) Blood Urea Nitrogen 14 mg/dL (9-23) Creatinine 0.81 mg/dL (0.550-1.02) Glomerular Filtration Rate Calc 86 mL/min (>90) BUN/Creatinine Ratio 17.3 (10.0-20.0) Serum Glucose 130 mg/dL (74-106) Calcium Level 9.6 mg/dL (8.7-10.4) Other Laboratory Tests 02/02/25 23:25 Discharge Statement: "Patient was advised to return to the ER or call 911 if any headaches, dizziness, shortness of breath, chest pain, abdominal pain, bleeding, fevers, or worsening of medical condition. Patient was counseled about treatment plan, medications, possible side effects, patientverbalized understanding. All questions were answered to the best of my ability. This discharge took greater then 30 minutes in planning, reviewing documentation, counseling the patient, and discussing with other team members." ASSESSMENT ASSESSMENT Assessment THA CASTANEDA RESIDENT Feb 03, 2025 19:48
[2025-02-03] MEDS ORDERED: ATORVASTATIN 20 MG TAB PO SCH (22:00)
== END 2025-02-03 10:12 | disposition left against medical advice (07) | DRG 207 ==
LOC: ER 23:08 → OVERFLOW 02-03 03:57
PROVIDERS: ADMIT Student in an Organized Health Care Education/Training Program; ATTEND Student in an Organized Health Care Education/Training Program
DX: R00.2 Palpitations (principal); I11.0 Hypertensive heart disease with heart failure; I50.9 Heart failure, unspecified; E66.01 Morbid (severe) obesity due to excess calories; R00.0 Tachycardia, unspecified; Z90.710 Acquired absence of both cervix and uterus; R79.89 Other specified abnormal findings of blood chemistry; Z53.21 Procedure and treatment not carried out due to patient leaving prior to being seen by health care provider
CPT/HCPCS: 36415; 71045; 80048; 80061; 83735; 84443; 84484; 85025; 93005; 99291; G0378